=== PATIENT | male | born 1950 | race Caucasian/White ===

== ENCOUNTER 2018-10-05 18:57 | Emergency (ER) | payer MEDICARE ==
--- NOTE | 2018-10-05 19:12 | Emergency Department Record ---
History of Present Illness - General Chief Complaint: Chest Pain Stated Complaint: CHEST DISCOMFORT Time Seen by Provider: 10/05/18 19:07 Source: Patient Mode of Arrival: Ambulatory Limitations: No limitations - History of Present Illness Initial Comments: 68 yo male presents with a concern about discomfort in his chest. The discomfort has been coming and going for about 2 days. He states it lasts a few minutes. It has gone away with aspirin. No pain with exertion or deep inspiration. He is a life long smoker with chronic cough and shortness of breath that is at baseline. No known CAD. He has HTN and elevated cholesterol. About 5 years ago he underwent cardiac testing that was negative. No calf pain or leg pain. The discomfort is in the left upper chest and to the left axilla area. It is not present at the moment. He states it has a feeling like a burp. Dr Peace is his PCP. MD Complaint: Chest pain Onset: During rest Pain Location: Left chest Severity: Mild Quality: Other Consistency: Intermittent Improves With: Other (Aspirin) Worsens With: Nothing, Other (Occurs at rest) Context: Other Anginal Symptoms: Other Other Symptoms: Burping Treatments Prior to Arrival: Aspirin (2 hours prior to arrival) - Related Data Home Medications Medication Instructions Recorded Confirmed Last Taken No Home Med [NO HOME MEDS] 10/05/18 10/05/18 Unknown Allergies Allergy/AdvReac Type Severity Reaction Status Date / Time No Known Drug Allergies Allergy Verified 10/05/18 19:13 Review of Systems Constitutional: Denies: Chills, Fever, Malaise, Weakness Eyes: Denies: Eye discharge ENT: Denies: Congestion, Throat pain Respiratory: Reports: As per HPI, Cough, Dyspnea, Wheezes. Denies: Hemoptysis Cardiovascular: Reports: Chest pain. Denies: Dyspnea on exertion, Edema, Palpitations, Syncope Endocrine: Denies: Fatigue, Polydipsia, Polyuria Gastrointestinal: Denies: Abdominal pain, Diarrhea, Nausea, Vomiting Genitourinary: Denies: Dysuria, Frequency, Hematuria Musculoskeletal: Denies: Arthralgia, Back pain, Joint swelling, Myalgia Skin: Denies: Bruising, Change in color, Rash Neurological: Denies: Headache Psychiatric: Denies: Anxiety Hematological/Lymphatic: Denies: Blood Clots, Easy bleeding, Easy bruising, Swollen glands Physical Exam - General General Appearance: Alert, Oriented x3, Cooperative, No acute distress Limitations: No limitations - Head Head exam: Atraumatic, Normal inspection - Eye Eye exam: Normal appearance, PERRL. negative: Conjunctival injection - ENT ENT exam: Normal exam Ear exam: Normal external inspection Nasal Exam: Normal inspection Mouth exam: Normal external inspection - Neck Neck exam: Normal inspection - Respiratory Respiratory exam: Normal lung sounds bilaterally. negative: Accessory muscle use, Chest wall tenderness, Decreased breath sounds, Prolonged expiratory, Respiratory distress, Rhonchi, Stridor, Wheezes - Cardiovascular Cardiovascular Exam: Regular rate, Normal rhythm, Normal heart sounds. negative : Bradycardia, Diastolic murmur, Irregular rhythm, Systolic murmur Peripheral Pulses: 2+: Radial (R), Radial (L) - GI/Abdominal GI/Abdominal exam: Soft. negative: Tenderness - Rectal Rectal exam: Deferred - exam: Deferred - Extremities Extremities exam: Normal inspection. negative: Calf tenderness, Pedal edema, Tenderness - Back Back exam: Denies: CVA tenderness (R), CVA tenderness (L) - Neurological Neurological exam: Alert, Normal gait, Oriented X3 - Psychiatric Psychiatric exam: Normal affect, Normal mood. negative: Agitated, Anxious - Skin Skin exam: Dry, Intact, Normal color, Warm Course - Reevaluation(s) Reevaluation #1: EKG #1: 19:03 Rate: 80 Rhythm: sinus [place]: borderline Left Intervals: normal ST segments: normal Prior: None 10/05/18 19:08 10/05/18 19:39 The CBC is normal The D-Dimer is 0.72 The CMP is normal The CXR was reviewed. CW retained chronic COPD and retained metallic FB. 10/05/18 19:45 The Troponin is normal 10/05/18 22:15 I recommend transfer to a larger hospital ([facility] or [facility]) for further testing of his chest pain. I explained that the aneurysm may or may not be the cause of the pain but I strongly recommend further testing with transfer since this is a new diagnosis. He states he is not willing to be transferred or admitted at this time. I explained that he could have a heart attack, , other causes for his chest pain that could be dangerous as well as the aneurysm. He understands. Following discussion with the patient regarding again, the patient reports that he will to leave [facility] at this time. Risks of , permanent impairment, or worsening of the current condition were discussed as well as the benefit of further evaluation of their presenting symptoms. Patient verbalizes understanding of all risks and benefits, desires to leave AMA despite these risks. Based on my examination, the patient is alert, oriented, and answers all questions appropriately. Patient appears to have the capacity to make rational decisions based on my examination. Patient was encouraged to return to the ED immediately if they change their mind about treatment and want to be re- evaluated. He states he will call his PCP on Sunday. I encouraged him to return anytime or go directly to [facility] or [facility] for evaluation. Medical Decision Making - Lab Data Result diagrams: 10/05/18 19:12 10/05/18 19:12 Disposition Disposition: Discharge Clinical Impression: Chest pain, Aortic aneurysm Disposition: Against Medical Advice Condition: (3) Guarded Instructions: Chest Pain (ED), Thoracic Aortic Aneurysm (ED), Against Medical Advice (ED) Additional Instructions: Call your doctor for the next available follow up appointment Sunday for your chest pain You are signing out AMA at this time Return anytime or be seen if the pain returns immediately Return to the ER for a recheck if worse, any new concerns or questions Review this ER visit and the tests performed with your family doctor Forms: Patient Portal Access Time of Disposition: 22:17 Quality - Quality Measures Quality Measures: N/A - Blood Pressure Screening Does Patient Have Any of the Following: No Blood Pressure Classification: Pre-Hypertensive BP Reading Systolic Measurement: 150 Diastolic Measurement: 88 Screening for High Blood Pressure: < Pre-Hypertensive BP, F/U Documented > [ G8950] Pre-Hypertensive Follow-up Interventions: Referral to alternative/primary care provider.
[2018-10-05 19:22] LABS: HEMATOCRIT 45.4 % (42.0-52.0); HEMOGLOBIN 15.1 gm/dl (14.0-18.0); MEAN CELL VOLUME 90.8 fl (81-97); MEAN CORPUSCULAR HEMOGLOBIN 30.2 pg (27-33); MEAN CORPUSCULAR HGB CONC 33.3 g/dl (32-36); MEAN PLATELET VOLUME 9.3 fl (7.4-10.4); PLATELET COUNT 326 K/uL (130-400); RED CELL DISTRIBUTION WIDTH 14.2 % (11.5-14.5); WHITE BLOOD COUNT W/O DIFF 8.9 K/uL (4.2-12.2)
[2018-10-05 19:30] LABS: PARTIAL THROMBOPLASTIN TIME 26.4 SECONDS (24.5-39.1); PROTHROMBIN TIME (PATIENT) 9.7 SECONDS (9.5-12.1)
[2018-10-05 19:32] LABS: BLOOD UREA NITROGEN 18 mg/dL (8-23); CREATININE 1.2 mg/dL (0.7-1.2); EST GLOMERULAR FILTRATION RATE > 60 mL/min
[2018-10-05 19:33] LABS: TOTAL PROTEIN 7.3 g/dL (6.6-8.7)
[2018-10-05 19:35] LABS: GLUCOSE,RANDOM 102 mg/dL (74-109)
[2018-10-05 19:38] LABS: ALB/GLOB RATIO 1.4 (1.1-1.8); ALBUMIN 4.2 g/dL (4.0-5.0); ALKALINE PHOSPHATASE 82 U/L (40-129); ALT/SGPT 13 U/L (<41); AST/SGOT 14 U/L (10.0-50.0)
--- NOTE | 2018-10-07 13:22 | RADIOLOGY REPORT ---
EXAM: CHEST, TWO VIEWS HISTORY: PATIENT HAS HAD CHEST DISCOMFORT FOR SEVERAL DAYS. TECHNIQUE: Two views of the chest are provided without comparison examinations. FINDINGS: The cardiomediastinal silhouette is within normal limits for size and contour. The brianna appear unremarkable. Emphysematous changes are identified bilaterally. There is a curvilinear density identified within the right upper lobe which is compatible with the patient's given clinical history of radiopaque metallic artifact that he acquired in a prior injury. IMPRESSION: THERE IS NO RADIOGRAPHIC EVIDENCE OF A FOCAL INFILTRATE, PLEURAL EFFUSION OR PNEUMOTHORAX. JOB NUMBER: [id number] MTDD
--- NOTE | 2018-10-07 14:06 | CT ANGIOGRAM REPORT ---
EXAM: CT ANGIOGRAM OF THE CHEST HISTORY: PATIENT HAS CHEST PRESSURE. TECHNIQUE: Serial axial CT scan of the chest was performed at 2.5 mm intervals from the thoracic inlet to the dome of the diaphragm following the intravenous administration of 84 ml of Omnipaque 350. Comparison: X-ray of the chest dated 10/05/18 is provided. FINDINGS: The thoracic inlet is unremarkable. The lung windows demonstrate severe emphysematous changes bilaterally. A curvilinear metallic density is noted within the right upper lobe compatible with the patient's given clinical history of radiopaque foreign body injury in the past. No focal consolidation, pleural effusion, or pneumothorax is noted. Nonspecific 5 mm nodule is noted within the right posterolateral lobe. Follow- up CT scan of the chest is recommended in six months to document stability of finding. The heart size and contour is within normal limits. The ascending aorta measures 4.2 cm in diameter and is aneurysmally dilated. There is no CT evidence of aortic dissection. Ectasia of the descending thoracic aorta is noted. There is no CT evidence of a filling defect within the primary and secondary pulmonary arterial tree to suggest a pulmonary embolus. There is no CT evidence of a mediastinal, hilar or axillary lymphadenopathy. Axial images through the upper abdomen demonstrate the visualized liver to contain a 4 mm hypodensity within the left hepatic lobe and 4 mm hypodensity within the inferior right hepatic lobe which are too small to characterize further. The visualized spleen and adrenal glands are unremarkable. Bone windows demonstrate multilevel degenerative disk disease of the thoracic spine. IMPRESSION: 1. NO CT EVIDENCE OF A PULMONARY EMBOLUS. 2. SEVERE EMPHYSEMATOUS CHANGES ARE IDENTIFIED DISCUSSED ABOVE. NONSPECIFIC 5 MM NODULAR IS NOTED WITHIN THE RIGHT POSTERIOR LOWER LOBE. FOLLOW -UP CT SCAN OF THE CHEST CAN BE OBTAINED IN SIX MONTHS TO DOCUMENT STABILITY OF FINDING. 3. CURVILINEAR DENSITY IDENTIFIED WITHIN THE RIGHT UPPER LOBE IS COMPATIBLE WITH THE PATIENT'S GIVEN CLINICAL HISTORY OF PRIOR RADIOPAQUE FOREIGN BODY INJURY. 4. ANEURYSMAL DILATATION OF THE ASCENDING AORTA IS NOTED WITHOUT CT EVIDENCE OF AORTIC DISSECTION. JOB NUMBER: [id number] [facility]
== END 2018-10-05 23:00 | disposition left against medical advice (07) ==
LOC: ER 18:57
DX: I71.9 Aortic aneurysm of unspecified site, without rupture (principal); R07.89 Other chest pain; R06.02 Shortness of breath; I10 Essential (primary) hypertension; I25.10 Atherosclerotic heart disease of native coronary artery without angina pectoris; F17.210 Nicotine dependence, cigarettes, uncomplicated
CPT/HCPCS: 99284 ×2; 85730; 85610; 80053; 84484; 85379; 85027; 71046; 71275; 93005; 93010; Q9967

== ENCOUNTER 2018-10-06 14:14 | Emergency (ER) | payer MEDICARE ==
[2018-10-06] MEDS ORDERED: NITROGLYCERIN 0.4MG SL TABLET #25 BTL SL PRN (15:13)
[2018-10-06 15:21] LABS: HEMOGLOBIN 15.4 gm/dl (14.0-18.0); MEAN CELL VOLUME 90.6 fl (81-97); MEAN CORPUSCULAR HEMOGLOBIN 30.3 pg (27-33); MEAN CORPUSCULAR HGB CONC 33.5 g/dl (32-36); MEAN PLATELET VOLUME 9.8 fl (7.4-10.4); PLATELET COUNT 365 K/uL (130-400); RED BLOOD COUNT 5.08 M/uL (4.40-5.70); RED CELL DISTRIBUTION WIDTH 14.3 % (11.5-14.5); WHITE BLOOD COUNT W/O DIFF 8.3 K/uL (4.2-12.2)
[2018-10-06 15:34] LABS: BLOOD UREA NITROGEN 20 mg/dL (8-23); CREATININE 1.3 mg/dL (0.7-1.2); EST GLOMERULAR FILTRATION RATE 58 mL/min
[2018-10-06 15:37] LABS: GLUCOSE,RANDOM 104 mg/dL (74-109)
[2018-10-06 15:40] LABS: CREATINE PHOSPHOKINASE 95 U/L (39-308)
[2018-10-06 15:41] LABS: CKMB 2.1 ng/mL (<6.73)
--- NOTE | 2018-10-06 16:14 | Emergency Department Record ---
History of Present Illness - General Chief Complaint: Chest Pain Stated Complaint: CHEST PAIN/LT HAND NUMBNESS Time Seen by Provider: 10/06/18 14:58 Source: Patient Mode of Arrival: Ambulatory Limitations: No limitations - History of Present Illness Initial Comments: pt has been having intermittent cp for 2 days. he also has some tingling in his left hand. he smokes and has high chol and htn. he was here last night for the same and left AMA. he also has a new found thoracic aneursym 4.2cm on the ascending aorta Onset/Timin -: Days(s) Onset: Awoke with symptoms Severity: Mild Severity scale (1-10): 2 Quality: Aching, Dull Consistency: Intermittent Improves With: Medication-other Worsens With: Nothing Treatments Prior to Arrival: None, Aspirin Treatment Prior to Arrival Comment:: 325 mg 3 hours ago - Related Data Allergies Allergy/AdvReac Type Severity Reaction Status Date / Time No Known Drug Allergies Allergy Verified 10/06/18 14:29 Travel Screening - Travel/Exposure Within Last 30 Days Have you traveled within the last 30 days?: No - Travel/Exposure Within Last Year Have you traveled outside the [place] in the last year?: No - Additonal Travel Details Have you been exposed to anyone with a communicable illness?: No - Travel Symptoms Symptom Screening: None Review of Systems Reviewed: No additional complaints except as noted below Constitutional: Reports: As per HPI. Denies: Chills, Fever, Malaise, Night sweats, Weakness, Weight change Eyes: Reports: As per HPI. Denies: Eye discharge, Eye pain, Photophobia, Vision change ENT: Reports: As per HPI. Denies: Congestion, Dental pain, Ear pain, Epistaxis , Hearing loss, Throat pain Respiratory: Reports: As per HPI. Denies: Cough, Dyspnea, Hemoptysis, Stridor, Wheezes Cardiovascular: Reports: As per HPI, Chest pain. Denies: Arrhythmia, Dyspnea on exertion, Edema, Murmurs, Orthopnea, Palpitations, Paroxysmal nocturnal dyspnea, Rheumatic Fever, Syncope Endocrine: Reports: As per HPI. Denies: Fatigue, Heat or cold intolerance, Polydipsia, Polyuria Gastrointestinal: Reports: As per HPI. Denies: Abdominal pain, Constipation, Diarrhea, Hematemesis, Hematochezia, Melena, Nausea, Vomiting Genitourinary: Reports: As per HPI. Denies: Dysuria, Frequency, Hematuria, Incontinence, Retention, Testicular pain, Testicular mass, Urgency Musculoskeletal: Reports: As per HPI. Denies: Arthralgia, Back pain, Gout, Joint swelling, Myalgia, Neck pain Skin: Reports: As per HPI. Denies: Bruising, Change in color, Change in hair/ nails, Lesions, Pruritus, Rash Neurological: Reports: As per HPI. Denies: Abnormal gait, Confusion, Headache, Numbness, Paresthesias, Seizure, Tingling, Tremors, Vertigo, Weakness Psychiatric: Reports: As per HPI. Denies: Anxiety, Auditory hallucinations, Depression, Homicidal thoughts, Suicidal thoughts, Visual hallucinations Hematological/Lymphatic: Reports: As per HPI. Denies: Anemia, Blood Clots, Easy bleeding, Easy bruising, Swollen glands Past Medical History - SOCIAL HISTORY Smoking Status: Current every day smoker Alcohol Use: Occasional Drug Use: None - RESPIRATORY Hx Respiratory Disorders: No - CARDIOVASCULAR Hx Cardio Disorders: No - NEURO Hx Neuro Disorders: Yes Hx Seizures: Yes (1969) - GI Hx Hiatal Hernia: Yes (2000) - Hx Genitourinary Disorders: No - ENDOCRINE Hx Endocrine Disorders: No - MUSCULOSKELETAL Hx Musculoskeletal Disorders: No - PSYCH Hx Psych Problems: No - HEMATOLOGY/ONCOLOGY Hx Hematology/Oncology Disorders: No Family Medical History Any Significant Family History?: No Physical Exam - General General Appearance: Alert, Oriented x3, Cooperative, Mild distress - Head Head exam: Normal inspection - Eye Eye exam: Normal appearance, PERRL, EOMI Pupils: Normal accommodation - ENT ENT exam: Normal exam, Mucous membranes moist, Normal external ear exam, Normal orophraynx Ear exam: Normal external inspection. negative: External canal tenderness Nasal Exam: Normal inspection. negative: Discharge, Sinus tenderness Mouth exam: Normal external inspection, Tongue normal Teeth exam: Normal inspection. negative: Dental caries Throat exam: Normal inspection. negative: Tonsillar erythema, Tonsillar exudate - Neck Neck exam: Normal inspection, Full ROM. negative: Tenderness - Respiratory Respiratory exam: Normal lung sounds bilaterally. negative: Respiratory distress - Cardiovascular Cardiovascular Exam: Regular rate, Normal rhythm, Normal heart sounds - GI/Abdominal GI/Abdominal exam: Soft, Normal bowel sounds. negative: Tenderness - Rectal Rectal exam: Deferred - exam: Deferred - Extremities Extremities exam: Normal inspection, Full ROM, Normal capillary refill. negative: Tenderness - Back Back exam: Reports: Normal inspection, Full ROM. 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 ] Respiratory 20 20 Rate Blood Pressure 136/86 Blood Pressure 129/75 [Right Arm] Pulse Ox 95 97 Medical Decision Making - Lab Data Result diagrams: 10/06/18 14:25 10/06/18 14:25 Lab Results 10/06/18 10/06/18 Range/Units 14:25 14:25 WBC 8.3 (4.2-12.2) K/uL RBC 5.08 (4.40-5.70) M/uL Hgb 15.4 (14.0-18.0) gm/dl Hct 46.0 (42.0-52.0) % MCV 90.6 (81-97) fl MCH 30.3 (27-33) pg MCHC 33.5 (32-36) g/dl RDW 14.3 (11.5-14.5) % Plt Count 365 (130-400) K/uL MPV 9.8 (7.4-10.4) fl Neutrophils % 50.0 (47-80) % Eosinophils % Not Reportable Basophils % Not Reportable Lymphocytes 29.0 (16-45) % Monocytes 21.0 H (0-9) % Sodium 137 (136-145) mmol/L Potassium 4.3 (3.4-4.5) mmol/L Chloride 99 (98-107) mmol/L Carbon Dioxide 23.0 (22-29) mmol/L Anion Gap 15.0 (7-16) BUN 20 (8-23) mg/dL Creatinine 1.3 H (0.7-1.2) mg/dL Estimated GFR 58 mL/min Random Glucose 104 (74-109) mg/dL Calcium 9.8 (8.8-10.2) mg/dL Creatine Kinase 95 (39-308) U/L CK-MB (CK-2) 2.1 (<6.73) ng/mL Troponin T < 0.010 (0-0.010) ng/mL Disposition Disposition: Transfer Clinical Impression: Chest pain Qualifiers: Chest pain type: unspecified Qualified Code(s): R07.9 - Chest pain, unspecified Disposition: Acute Care Hospital Transfer Transfer To: [facility] Reason For Transfer: needs pals nurse and thoracic surgeon Accepting Physician: dr lorenzo Time Discussed w/Accepting Physician: 16:18 Quality - Quality Measures Quality Measures: N/A - Blood Pressure Screening Does Patient Have Any of the Following: Active Dx of HTN Blood Pressure Classification: Pre-Hypertensive BP Reading Systolic Measurement: 136 Diastolic Measurement: 86 Screening for High Blood Pressure: < Pre-Hypertensive BP, F/U Documented > [ G8950] Pre-Hypertensive Follow-up Interventions: Follow-up with rescreen every year.
--- NOTE | 2018-10-06 16:22 | Emergency Department Record ---
History of Present Illness - General Chief Complaint: Chest Pain Stated Complaint: CHEST PAIN/LT HAND NUMBNESS Time Seen by Provider: 10/06/18 14:58 Source: Patient Mode of Arrival: Ambulatory Limitations: No limitations - History of Present Illness Onset/Timin -: Days(s) Onset: Awoke with symptoms Severity: Mild Severity scale (1-10): 2 Quality: Aching, Dull Consistency: Intermittent Improves With: Medication-other Worsens With: Nothing Treatments Prior to Arrival: None, Aspirin Treatment Prior to Arrival Comment:: 325 mg 3 hours ago - Related Data Allergies Allergy/AdvReac Type Severity Reaction Status Date / Time No Known Drug Allergies Allergy Verified 10/06/18 14:29 Travel Screening - Travel/Exposure Within Last 30 Days Have you traveled within the last 30 days?: No - Travel/Exposure Within Last Year Have you traveled outside the [place] in the last year?: No - Additonal Travel Details Have you been exposed to anyone with a communicable illness?: No - Travel Symptoms Symptom Screening: None Review of Systems Constitutional: Reports: As per HPI. Denies: Chills, Fever, Malaise, Night sweats, Weakness, Weight change Eyes: Reports: As per HPI. Denies: Eye discharge, Eye pain, Photophobia, Vision change ENT: Reports: As per HPI. Denies: Congestion, Dental pain, Ear pain, Epistaxis , Hearing loss, Throat pain Respiratory: Reports: As per HPI. Denies: Cough, Dyspnea, Hemoptysis, Stridor, Wheezes Cardiovascular: Reports: As per HPI, Chest pain. Denies: Arrhythmia, Dyspnea on exertion, Edema, Murmurs, Orthopnea, Palpitations, Paroxysmal nocturnal dyspnea, Rheumatic Fever, Syncope Endocrine: Reports: As per HPI. Denies: Fatigue, Heat or cold intolerance, Polydipsia, Polyuria Gastrointestinal: Reports: As per HPI. Denies: Abdominal pain, Constipation, Diarrhea, Hematemesis, Hematochezia, Melena, Nausea, Vomiting Genitourinary: Reports: As per HPI. Denies: Dysuria, Frequency, Hematuria, Incontinence, Retention, Testicular pain, Testicular mass, Urgency Musculoskeletal: Reports: As per HPI. Denies: Arthralgia, Back pain, Gout, Joint swelling, Myalgia, Neck pain Skin: Reports: As per HPI. Denies: Bruising, Change in color, Change in hair/ nails, Lesions, Pruritus, Rash Neurological: Reports: As per HPI. Denies: Abnormal gait, Confusion, Headache, Numbness, Paresthesias, Seizure, Tingling, Tremors, Vertigo, Weakness Psychiatric: Reports: As per HPI. Denies: Anxiety, Auditory hallucinations, Depression, Homicidal thoughts, Suicidal thoughts, Visual hallucinations Hematological/Lymphatic: Reports: As per HPI. Denies: Anemia, Blood Clots, Easy bleeding, Easy bruising, Swollen glands Past Medical History - SOCIAL HISTORY Smoking Status: Current every day smoker Alcohol Use: Occasional Drug Use: None - RESPIRATORY Hx Respiratory Disorders: No - CARDIOVASCULAR Hx Cardio Disorders: No - NEURO Hx Neuro Disorders: Yes Hx Seizures: Yes (1969) - GI Hx Hiatal Hernia: Yes (2000) - Hx Genitourinary Disorders: No - ENDOCRINE Hx Endocrine Disorders: No - MUSCULOSKELETAL Hx Musculoskeletal Disorders: No - PSYCH Hx Psych Problems: No - HEMATOLOGY/ONCOLOGY Hx Hematology/Oncology Disorders: No Family Medical History Any Significant Family History?: No Physical Exam - General Limitations: No limitations Course Vital Signs 10/06/18 10/06/18 10/06/18 14:30 15:00 15:48 Temperature 97.7 F 97.7 F Pulse Rate 76 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 ] Respiratory 20 20 Rate Blood Pressure 136/86 Blood Pressure 129/75 [Right Arm] Pulse Ox 95 97 Medical Decision Making - Lab Data Result diagrams: 10/06/18 14:25 10/06/18 14:25 Lab Results 10/06/18 10/06/18 Range/Units 14:25 14:25 WBC 8.3 (4.2-12.2) K/uL RBC 5.08 (4.40-5.70) M/uL Hgb 15.4 (14.0-18.0) gm/dl Hct 46.0 (42.0-52.0) % MCV 90.6 (81-97) fl MCH 30.3 (27-33) pg MCHC 33.5 (32-36) g/dl RDW 14.3 (11.5-14.5) % Plt Count 365 (130-400) K/uL MPV 9.8 (7.4-10.4) fl Neutrophils % 50.0 (47-80) % Eosinophils % Not Reportable Basophils % Not Reportable Lymphocytes 29.0 (16-45) % Monocytes 21.0 H (0-9) % Sodium 137 (136-145) mmol/L Potassium 4.3 (3.4-4.5) mmol/L Chloride 99 (98-107) mmol/L Carbon Dioxide 23.0 (22-29) mmol/L Anion Gap 15.0 (7-16) BUN 20 (8-23) mg/dL Creatinine 1.3 H (0.7-1.2) mg/dL Estimated GFR 58 mL/min Random Glucose 104 (74-109) mg/dL Calcium 9.8 (8.8-10.2) mg/dL Creatine Kinase 95 (39-308) U/L CK-MB (CK-2) 2.1 (<6.73) ng/mL Troponin T < 0.010 (0-0.010) ng/mL Disposition Disposition: Transfer Clinical Impression: Chest pain Qualifiers: Chest pain type: unspecified Qualified Code(s): R07.9 - Chest pain, unspecified Aortic aneurysm Qualifiers: Aortic location: thoracic aorta Presence of rupture: without rupture Qualified Code(s): I71.2 - Thoracic aortic aneurysm, without rupture Disposition: [facility] Transfer Transfer To: [facility] 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
== END 2018-10-06 16:47 | disposition short-term general hospital (02) ==
LOC: ER 14:14
DX: I71.2 Thoracic aortic aneurysm, without rupture (principal); R07.9 Chest pain, unspecified; R20.0 Anesthesia of skin; I10 Essential (primary) hypertension; F17.210 Nicotine dependence, cigarettes, uncomplicated
CPT/HCPCS: 80048; 82550; 82553; 84484; 85027; 93005; 93010; 99285